=== PATIENT | female | born 1965 | race Caucasian/White ===

== ENCOUNTER 2018-11-22 06:28 | Emergency (ER) | payer OTHER ==
[~2018-11-22] VITALS: Ht 167.6 cm; Wt 69.9 kg
[2018-11-22 06:57] VITALS: BP 177/123
[2018-11-22] MEDS ORDERED: DIPHENHYDRAMINE HCL 12.5 MG/5 ML UDC PO ONE (07:30)
[2018-11-22] MEDS ORDERED: diphenhydrAMINE HCL ELIX 25 MG/10 ML UDC ONE (07:33)
== END 2018-11-22 07:41 | disposition home or self-care (01) ==
LOC: ER 06:28
DX: S40.861A Insect bite (nonvenomous) of right upper arm, initial encounter (principal); S50.862A Insect bite (nonvenomous) of left forearm, initial encounter; I10 Essential (primary) hypertension; F17.200 Nicotine dependence, unspecified, uncomplicated; W57.XXXA Bitten or stung by nonvenomous insect and other nonvenomous arthropods, initial encounter; Y93.89 Activity, other specified; Y92.89 Other specified places as the place of occurrence of the external cause; Y99.8 Other external cause status
CPT/HCPCS: 99282; Q0163 ×2